=== PATIENT | female | born 1950 ===

== ENCOUNTER 2017-02-22 09:12 | Emergency (ER) | payer MEDICARE, MEDICAID ==
[2017-02-22 09:12] VITALS: BMI 26.6
[2017-02-22 09:35] VITALS: TEMP 99.8
[2017-02-22] MEDS ORDERED: Sodium Chloride 0.9% 1,000 ML IV STA (10:05)
[2017-02-22] MEDS ORDERED: Famotidine 20mg/50ml 20 MG/50 ML BAG IV STA (10:05)
--- NOTE | 2017-02-22 10:09 | ED PDOC ---
Arrival/HPI - General Chief Complaint: GI Problem Time Seen by Provider: 02/22/17 09:35 Historian: Patient - History of Present Illness Narrative History of Present Illness (Text): 02/22/17 10:12 A 66 year old female, whose past medical history includes hypertension, presents to the emergency department complaining of one day duration of abdominal cramping, generalized weakness and non-bilious non-bloody vomiting. Patient reports last BM today. Patient denies diarrhea, fever or any other complaints at this time. Time/Duration: 24 hours Symptom Onset: Sudden Symptom Course: Unchanged Activities at Onset: Rest Context: Home Past Medical History - Provider Review Nursing Documentation Reviewed: Yes - Infectious Disease Hx of Infectious Diseases: None - Tetanus Immunization Tetanus Immunization: Unknown - Reproductive Menopause: Yes - Cardiac Hx Cardiac Disorders: Yes Hx [place]: Yes Hx Hypertension: Yes - Pulmonary Hx Respiratory Disorders: No - Neurological Hx Neurological Disorder: Yes HX Cerebrovascular Accident: Yes - HEENT Hx HEENT Disorder: No - Renal Hx Renal Disorder: No - Endocrine/Metabolic Hx Endocrine Disorders: No - Hematological/Oncological Hx Blood Disorders: No - Integumentary Hx Dermatological Disorder: No - Musculoskeletal/Rheumatological Hx Musculoskeletal Disorders: Yes Hx Arthritis: Yes - Gastrointestinal Hx Gastrointestinal Disorders: Yes Hx Gastroesophageal Reflux: Yes - Genitourinary/Gynecological Hx Genitourinary Disorders: No - Psychiatric Hx Psychophysiologic Disorder: No Hx Anxiety: No Hx Bipolar Disorder: No Hx Depression: No Hx Emotional Abuse: No Hx Hallucinations: No Hx Panic Disorder: No Hx Post Traumatic Stress Disorder: No Hx Psychosis: No Hx Physical Abuse: No Hx Schizophrenia: No Hx Sexual Abuse: No Hx Substance Use: No - Past Surgical History Past Surgical History: Non-Contributing - Surgical History Hx Orthopedic Surgery: Yes (left elbow) - Anesthesia Hx Anesthesia: Yes Hx Anesthesia Reactions: No Hx Malignant Hyperthermia: No - Suicidal Assessment Feels Threatened In Home Enviroment: No Family/Social History - Physician Review Nursing Documentation Reviewed: Yes Family/Social History: No Known Family HX Smoking Status: Never Smoked Hx Alcohol Use: No Hx Substance Use: No Hx Substance Use Treatment: No Allergies/Home Meds Allergies/Adverse Reactions: Allergies No Known Allergies Allergy (Verified 02/22/17 09:20) Home Medications: Home Meds Medication Instructions Recorded Confirmed Aspirin/Dipyridamole [Aggrenox 25 1 cer PO DAILY 08/18/15 02/22/17 MG-200 MG] Omeprazole 20 mg PO DAILY 07/06/16 02/22/17 amLODIPine [Norvasc] 10 mg PO DAILY 07/06/16 02/22/17 Physical Exam - Physical Exam Narrative Physical Exam (Text): 02/22/17 10:09- Review of Systems Constitutional: Present: generalized weakness absent: Weight Change, Fevers Eyes: Normal ENT: Normal Respiratory: Normal absent: SOB, Cough, Sputum Cardiovascular: Normal absent: Chest pain, Palpitations, Syncope Gastrointestinal: Present: abdominal pain, non-bilious non-bloody vomiting absent: Diarrhea Genitourinary: Normal. absent: Dysuria, Frequency, Hematuria Musculoskeletal: Normal. absent: Arthralgias, Back Pain, Neck Pain Skin: Normal Neurological: Normal absent: Focal Weakness Endocrine: Normal Hemo/Lymphatic: Normal Psychiatric: Normal - Physical exam Patient appears age appropriate, speaking full sentences without difficulty - Systems Exam Head: Present: Atraumatic, Normocephalic Pupils: Present: PERRL Extraocular Muscles: Present: EOMI Conjunctiva: Present: Normal Mouth: Present: Moist Mucous Membranes Neck: Present: Normal Range of Motion. No: MIDLINE TENDERNESS, Paraspinal Tenderness Respiratory/Chest: Present: Clear to Auscultation, Good Air Exchange. No: Respiratory Distress, Accessory Muscle Use, Tachypnic Cardiovascular: Present: Regular Rate and Rhythm, Normal S1, S2, Peripheral Pulses Present. No: Murmurs Abdomen: Present: Normal Bowel Sounds, No: Tenderness, Peritoneal Signs, Rebound, Guarding, Distention Back: Present: Normal Inspection. No: Midline Tenderness, Paraspinal Tenderness Upper Extremity: Present: Normal Inspection. No: Cyanosis, Edema Lower Extremity: Present: Normal Inspection. No: Edema Neurological: Present: GCS=15, Speech Normal, cranial nerves II through XII fully intact with no cerebellar abnormality, neuro-sensory fully intact. No focal neurological deficits. Skin: Present: Warm, Dry, Normal Color. No: Rashes Lymphatic: Present: OX3, NI, NC Psychiatric: Present: Alert, Oriented x 3, Normal Insight, Normal Concentration Vital Signs Reviewed: Yes Vital Signs Temp Pulse Resp BP Pulse Ox 02/22/17 12:30 68 18 124/76 100 02/22/17 11:00 70 18 138/76 100 02/22/17 09:33 99.8 F H 68 18 142/81 99 02/22/17 09:23 97.8 F 80 18 151/91 H 99 Temperature: Afebrile Blood Pressure: Hypertensive Pulse: Regular Respiratory Rate: Normal Appearance: Positive for: Well-Appearing, Non-Toxic, Comfortable Pain Distress: None Mental Status: Positive for: Alert and Oriented X 3 Finger Stick Blood Glucose: 102 Medical Decision Making ED Course and Treatment: 02/22/17 10:06 Impression: A 66 year old female with abdominal cramping, generalized weakness and non- bilious non-bloody vomiting. No acute findings on physical exam. Differential Diagnosis included but are not limited to: dehydration, electrolyte abnormalities Plan: -- EKG -- labs -- IV fluids, Zofran, Pepcid -- Reassess and disposition Prior Visits: Notes and results from previous visits were reviewed. Patient last reported to the emergency department on 08/19/16 for evaluation of abdominal discomfort and associated nausea, non-bilious non-bloody vomiting and generalized weakness. Progress Notes: EKG shows NSR at [address]-segment elevations, normal intervals. Interpreted by me. 02/22/17 13:08 no acute lab findings On reevaluation, patient reports that she feels much better and would like to be discharged home. Patient's repeat abdominal exam is soft, nontender, non distended with positive bowel sounds in all 4 quadrants and no peritoneal signs. Patient is tolerating PO without any difficulty. Pt states she understands to return to the ER right away for new or worsening symptoms or for inability to f/u with PMD or specialist as instructed. Patient states that she fully agrees with and understands discharge instructions. States that she agrees with the plan and disposition. Verbalized and repeated discharge instructions and plan. I have given the patient opportunity to ask any additional questions. - Lab Interpretations Lab Results: 02/22/17 10:15 02/22/17 10:15 Lab Results 02/22/17 10:15: Sodium 139, Potassium 3.7, Chloride 104, Carbon Dioxide 24, Anion Gap 15, BUN 12, Creatinine 0.9, Est GFR ( Amer) > 60, Est GFR (Non- Af Amer) > 60, Random Glucose 99, Calcium 9.8, Total Bilirubin 1.2, AST 24, ALT 24, Alkaline Phosphatase 72, Lactate Dehydrogenase 490, Total Creatine Kinase 74 , Troponin I < 0.01, Total Protein 7.7, Albumin 4.5, Globulin 3.3, Albumin/ Globulin Ratio 1.4, Lipase 69 02/22/17 10:15: PT 11.8, INR 1.09 H, APTT 26.8 02/22/17 10:15: WBC 4.8, RBC 4.57, Hgb 13.4, Hct 39.3, MCV 86.0, MCH 29.3, MCHC 34.1, RDW 13.7, Plt Count 228, MPV 10.3, Gran % 72.5 H, Lymph % (Auto) 20.8 L, [place] % (Auto) 6.3 H, Eos % (Auto) 0.2 L, Baso % (Auto) 0.2, Gran # 3.45, Lymph # 1.0 L, [place] # 0.3, Eos # 0.0, Baso # 0.01 I have reviewed the lab results: Yes - EKG Interpretation Interpreted by ED Physician: Yes Type: 12 lead EKG - Medication Orders Current Medication Orders: Discontinued Medications Famotidine (Pepcid 20mg/50ml Premix) 20 mg in 50 mls @ 100 mls/hr IV STAT STA Stop: 02/22/17 10:34 Last Admin: 02/22/17 10:25 Dose: 100 mls/hr Sodium Chloride (Sodium Chloride 0.9%) 1,000 mls @ 1,000 mls/hr IV .Q1H STA Stop: 02/22/17 11:04 Last Admin: 02/22/17 10:25 Dose: 1,000 mls/hr Ondansetron HCl (Zofran Inj) 4 mg IVP STAT STA Stop: 02/22/17 10:06 Last Admin: 02/22/17 10:25 Dose: 4 mg - Scribe Statement The provider has reviewed the documentation as recorded by the Yordan Willingham Provider Jessicaibe Attestation: All medical record entries made by the Jessicaibbrittany were at my direction and personally dictated by me. I have reviewed the chart and agree that the record accurately reflects my personal performance of the history, physical exam, medical decision making, and the department course for this patient. I have also personally directed, reviewed, and agree with the discharge instructions and disposition. Disposition/Present on Arrival - Present on Arrival Any Indicators Present on Arrival: No History of DVT/PE: No History of Uncontrolled Diabetes: No Urinary Catheter: No History of Decub. Ulcer: No History Surgical Site Infection Following: None - Disposition Have Diagnosis and Disposition been Completed?: Yes Diagnosis: Abdominal pain, Nausea and vomiting Disposition: HOME/ ROUTINE Disposition Time: 13:13 Patient Plan: Discharge Condition: GOOD Discharge Instructions (ExitCare): Abdominal Pain (ED), Acute Nausea and Vomiting (ED) Additional Instructions: PLEASE RETURN TO THE EMERGENCY DEPARTMENT FOR NEW OR WORSENING SYMPTOMS. RETURN RIGHT AWAY IF YOU CANNOT FOLLOW UP WITH YOUR PRIMARY CARE DOCTOR, CLINIC, OR SPECIALIST IN 1-2 DAYS. Prescriptions: Famotidine [Pepcid] 20 mg PO BID #14 tab Ondansetron [Zofran Odt] 4 mg PO Q6 PRN #14 odt PRN Reason: Nausea/Vomiting
[2017-02-22 10:30] LABS: ADD MANUAL DIFF? NO
[2017-02-22 10:37] LABS: BASO # 0.01 K/mm3 (0.0-2.0); BASO % 0.2 % (0.0-3.0); EOS % 0.2 % (1.5-5.0); GRAN # 3.45 (1.4-6.5); GRAN % 72.5 % (50.0-68.0); HEMATOCRIT 39.3 % (36.0-48.0); LYMPH % 20.8 % (22.0-35.0); MEAN CORPUSCULAR HEMOGLOBIN 29.3 pg (25.0-35.0); MEAN CORPUSCULAR HGB CONC 34.1 g/dl (31.0-37.0); MEAN PLATELET VOLUME 10.3 fl (7.0-11.0); MONO # 0.3 (0.1-0.6); MONO % 6.3 % (1.0-6.0); PLATELET COUNT 228 10^3/uL (120.0-450.0); RED CELL DISTRIBUTION WIDTH 13.7 % (11.5-14.5); WHITE BLOOD COUNT 4.8 10^3/ul (4.5-11.0)
[2017-02-22 10:43] LABS: INR 1.09 (0.93-1.08); PARTIAL THROMBOPLASTIN TIME 26.8 Seconds (23.7-30.8)
[2017-02-22 10:45] LABS: ALB/GLOB RATIO 1.4 (1.1-1.8); ALKALINE PHOSPHATASE 72 U/L (38-133); ALT/SGPT 24 U/L (7-56); AST/SGOT 24 U/L (15-39); BILIRUBIN,TOTAL 1.2 mg/dL (0.2-1.3); BLOOD UREA NITROGEN 12 mg/dL (7-21); CALCIUM 9.8 mg/dL (8.4-10.5); CARBON DIOXIDE 24 mmol/L (21-33); CHLORIDE 104 mmol/L (98-107); GFR AFRICAN-AMERICAN > 60; GLUCOSE,RANDOM 99 mg/dL (70-110); LIPASE 69 U/L (23-300); POTASSIUM 3.7 mmol/L (3.6-5.0); SODIUM 139 mmol/L (132-148); TOTAL PROTEIN 7.7 g/dL (5.8-8.3)
[2017-02-22 10:57] LABS: TROPONIN I < 0.01 ng/mL
[2017-02-22 11:01] VITALS: O2SAT 100
[2017-02-22 13:33] VITALS: BP 128/80; PULSE 65; RESP 16
--- NOTE | 2017-02-22 22:30 | CARD ---
APPROVED REPORT EKG Measurement Heart [id number] <Conclusion> Normal sinus rhythm Minimal voltage criteria for LVH, may be normal variant Borderline ECG
== END 2017-02-22 13:34 | disposition home or self-care (01) ==
LOC: ED 09:12
DX: R10.9 Unspecified abdominal pain (principal); R11.2 Nausea with vomiting, unspecified; I10 Essential (primary) hypertension
CPT/HCPCS: 80053; 82550; 82948; 83615; 83690; 84484; 85025; 85610; 85730; 93005; 96365; 96375; 99285; J2405; J7040

== ENCOUNTER 2018-01-04 10:17 | Emergency (ER) | payer MEDICARE, MEDICAID ==
[2018-01-04 10:17] VITALS: BMI 26.6
[2018-01-04 10:42] VITALS: RESP 18; TEMP 99.3
[2018-01-04] MEDS ORDERED: Sodium Chloride 0.9% 1,000 ML IV ONE (10:50)
--- NOTE | 2018-01-04 11:24 | ED PDOC ---
Arrival/HPI - General Chief Complaint: Abdominal Pain Time Seen by Provider: 01/04/18 10:43 Historian: Patient - History of Present Illness Narrative History of Present Illness (Text): 01/04/18 11:21 67yo female with PMhx of hypertension, gastritis who present with 3days history of burning epigastric abdominal pain with nausea and vomiting x2. States is typical of her gastritis symptoms. She took her Omeprazole without relieve. She denies diarrhea, constipation, chest pain, SOB, melena, hematmesis, urinary symptoms. Past Medical History - Provider Review Nursing Documentation Reviewed: Yes - Infectious Disease Hx of Infectious Diseases: None - Tetanus Immunization Tetanus Immunization: Unknown - Reproductive Menopause: Yes - Cardiac Hx Cardiac Disorders: Yes Hx [place]: Yes Hx Hypertension: Yes - Pulmonary Hx Respiratory Disorders: No - Neurological Hx Neurological Disorder: Yes HX Cerebrovascular Accident: Yes - HEENT Hx HEENT Disorder: No - Renal Hx Renal Disorder: No - Endocrine/Metabolic Hx Endocrine Disorders: No - Hematological/Oncological Hx Blood Disorders: No - Integumentary Hx Dermatological Disorder: No - Musculoskeletal/Rheumatological Hx Musculoskeletal Disorders: Yes Hx Arthritis: Yes - Gastrointestinal Hx Gastrointestinal Disorders: Yes Hx Gastroesophageal Reflux: Yes - Genitourinary/Gynecological Hx Genitourinary Disorders: No - Psychiatric Hx Psychophysiologic Disorder: No Hx Anxiety: No Hx Bipolar Disorder: No Hx Depression: No Hx Emotional Abuse: No Hx Hallucinations: No Hx Panic Disorder: No Hx Post Traumatic Stress Disorder: No Hx Psychosis: No Hx Physical Abuse: No Hx Schizophrenia: No Hx Sexual Abuse: No Hx Substance Use: No - Past Surgical History Past Surgical History: Non-Contributing - Surgical History Hx Orthopedic Surgery: Yes (left elbow) - Anesthesia Hx Anesthesia: Yes Hx Anesthesia Reactions: No Hx Malignant Hyperthermia: No - Suicidal Assessment Feels Threatened In Home Enviroment: No Family/Social History - Physician Review Nursing Documentation Reviewed: Yes Family/Social History: Unknown Family HX Smoking Status: Never Smoked Hx Alcohol Use: No Hx Substance Use: No Hx Substance Use Treatment: No Allergies/Home Meds Allergies/Adverse Reactions: Allergies No Known Allergies Allergy (Verified 01/04/18 10:42) Home Medications: Home Meds Medication Instructions Recorded Confirmed Aspirin/Dipyridamole [Aggrenox 25 1 cer PO DAILY 08/18/15 01/04/18 MG-200 MG] Omeprazole 20 mg PO DAILY 07/06/16 01/04/18 amLODIPine [Norvasc] 10 mg PO DAILY 07/06/16 01/04/18 Review of Systems - Physician Review All systems were reviewed & negative as marked: Yes - Review of Systems Constitutional: Normal Eyes: Normal ENT: Normal Respiratory: Normal Cardiovascular: Normal Gastrointestinal: Abdominal Pain, Nausea, Vomiting. absent: Constipation, Diarrhea, Hematochezia, Hematemesis Genitourinary Female: Normal Musculoskeletal: Normal Skin: Normal Neurological: Normal Endocrine: Normal Hemo/Lymphatic: Normal Psychiatric: Normal Physical Exam Vital Signs Reviewed: Yes Vital Signs Temp Pulse Resp BP Pulse Ox 01/04/18 17:21 99.3 F 65 18 138/69 98 01/04/18 17:00 65 18 138/69 98 01/04/18 15:26 68 18 141/75 98 01/04/18 10:39 99.3 F 72 18 143/86 99 Temperature: Afebrile Blood Pressure: Normal Pulse: Regular Respiratory Rate: Normal Appearance: Positive for: Well-Appearing, Non-Toxic, Comfortable Pain Distress: None Mental Status: Positive for: Alert and Oriented X 3 - Systems Exam Head: Present: Atraumatic, Normocephalic Pupils: Present: PERRL Extroacular Muscles: Present: EOMI Conjunctiva: Present: Normal Mouth: Present: Moist Mucous Membranes Neck: Present: Normal Range of Motion Respiratory/Chest: Present: Clear to Auscultation, Good Air Exchange. No: Respiratory Distress, Accessory Muscle Use Cardiovascular: Present: Regular Rate and Rhythm, Normal S1, S2. No: Murmurs Abdomen: Present: Other (soft). No: Tenderness, Distention, Peritoneal Signs, Rebound, Guarding, McBurney's Point Tender, Rovsing's Sign Present Back: Present: Normal Inspection Upper Extremity: Present: Normal Inspection. No: Cyanosis, Edema Lower Extremity: Present: Normal Inspection. No: Edema Neurological: Present: GCS=15, CN II-XII Intact, Speech Normal Skin: Present: Warm, Dry, Normal Color. No: Rashes Psychiatric: Present: Alert, Oriented x 3, Normal Insight, Normal Concentration Medical Decision Making ED Course and Treatment: 01/04/18 19:44 Pt in ED for stated history. she states her pain improved in ED, but she still had pain. Lab was unremarkable and abdominal/pelvic Ct was ordered secondary to the pt's pain. On re evaluation she reports having BM in ED. States her pain resolved after the BM and she requested for food and was able to tolerate the food. Abdominal/Pelvic CT IMPRESSION: No CT evidence of acute pathology in the abdomen and pelvis. No evidence of cholecystitis or pancreatitis. The stomach is not distended therefore cannot be evaluated. Stable soft tissue mass in the uterus likely represent large fibroid. Result was DW the pt. She takes Omeprazole at home. She was given Zofran for nausea/vomiting. - Lab Interpretations Lab Results: 01/04/18 11:15 01/04/18 11:15 Lab Results 01/04/18 12:50: Urine Color Yellow, Urine Appearance Clear, Urine pH 6.0, Ur Specific [place] 1.010, Urine Protein Negative, Urine Glucose (UA) Negative, Urine Ketones Negative, Urine Blood Negative, Urine Nitrate Negative, Urine Bilirubin Negative, Urine Urobilinogen 0.2, Ur Leukocyte Esterase Trace H, Urine RBC Negative, Urine WBC 1 - 3, Ur Epithelial Cells 1 - 3, Urine Bacteria Few 01/04/18 11:15: Lactic Acid 0.8 01/04/18 11:15: Sodium 143, Potassium 3.4 L, Chloride 106, Carbon Dioxide 25, Anion Gap 15, BUN 10, Creatinine 0.8, Est GFR ( Amer) > 60, Est GFR (Non- Af Amer) > 60, Random Glucose 102, Calcium 9.1, Total Bilirubin 0.5, AST 21, ALT 17, Alkaline Phosphatase 61, Lactate Dehydrogenase 488, Total Creatine Kinase 96, Troponin I < 0.01, Total Protein 7.1, Albumin 4.2, Globulin 2.9, Albumin/Globulin Ratio 1.5, Amylase 66, Lipase 80 01/04/18 11:15: PT 12.9 H, INR 1.12 H, APTT 30.4 01/04/18 11:15: WBC 4.9, RBC 4.18, Hgb 12.1, Hct 36.0, MCV 86.1, MCH 28.9, MCHC 33.6, RDW 13.9, Plt Count 231, MPV 10.5, Gran % 68.1 H, Lymph % (Auto) 23.3, [place] % (Auto) 7.6 H, Eos % (Auto) 0.8 L, Baso % (Auto) 0.2, Gran # 3.33, Lymph # (Auto) 1.1 L, [place] # (Auto) 0.4, Eos # (Auto) 0.0, Baso # (Auto) 0.01 - RAD Interpretation Radiology Orders: 01/04/18 12:40 ABD & PELVIS IV CONTRAST ONLY [CT] Stat - Medication Orders Current Medication Orders: Discontinued Medications Famotidine (Pepcid) 20 mg IVP STAT STA Stop: 01/04/18 10:50 Last Admin: 01/04/18 11:12 Dose: 20 mg IVP Administration Document 01/04/18 11:12 EQ (Rec: 01/04/18 11:12 EQ [id number]) Charges for Administration # of IVP Administrations 1 Sodium Chloride (Sodium Chloride 0.9%) 1,000 mls @ 250 mls/hr IV .Q4H ONE Stop: 01/04/18 14:49 Last Admin: 01/04/18 11:12 Dose: 250 mls/hr eMAR Start Stop Document 01/04/18 11:12 EQ (Rec: 01/04/18 11:12 EQ [id number]) Intravenous Solution Start Date 01/04/18 Start Time 11:12 Ondansetron HCl (Zofran Inj) 4 mg IVP STAT STA Stop: 01/04/18 10:52 Last Admin: 01/04/18 11:12 Dose: 4 mg IVP Administration Document 01/04/18 11:12 EQ (Rec: 01/04/18 11:12 EQ [id number]) Charges for Administration # of IVP Administrations 1 Potassium Chloride (K-Dur 20 Meq Er Tab) 20 meq PO STAT STA Stop: 01/04/18 11:51 Last Admin: 01/04/18 14:29 Dose: 20 meq Disposition/Present on Arrival - Present on Arrival Any Indicators Present on Arrival: No History of DVT/PE: No History of Uncontrolled Diabetes: No Urinary Catheter: No History of Decub. Ulcer: No History Surgical Site Infection Following: None - Disposition Have Diagnosis and Disposition been Completed?: Yes Diagnosis: Abdominal pain, Nausea and vomiting Disposition: HOME/ ROUTINE Disposition Time: 16:50 Patient Plan: Discharge Condition: STABLE Discharge Instructions (ExitCare): Acute Abdomen (Belly Pain), Nausea and Vomiting, Adult (DC) Additional Instructions: Follow up with your doctor Return to ED for any new or worsening symptoms Prescriptions: Ondansetron ODT [Zofran ODT] 4 mg PO Q6 #6 odt Referrals: Fina Benavides MD [Primary Care Provider] - Follow up with primary Forms: [employer] ([place])
[2018-01-04 11:43] LABS: BASO # 0.01 K/mm3 (0.0-2.0); BASO % 0.2 % (0.0-3.0); EOS % 0.8 % (1.5-5.0); GRAN # 3.33 (1.4-6.5); GRAN % 68.1 % (50.0-68.0); HEMOGLOBIN 12.1 g/dL (12.0-16.0); LYMPH # 1.1 (1.2-3.4); LYMPH % 23.3 % (22.0-35.0); MEAN CELL VOLUME 86.1 fl (80.0-105.0); MEAN CORPUSCULAR HEMOGLOBIN 28.9 pg (25.0-35.0); MEAN CORPUSCULAR HGB CONC 33.6 g/dl (31.0-37.0); MEAN PLATELET VOLUME 10.5 fl (7.0-11.0); MONO # 0.4 (0.1-0.6); MONO % 7.6 % (1.0-6.0); RBC 4.18 10^6/uL (3.5-6.1); RED CELL DISTRIBUTION WIDTH 13.9 % (11.5-14.5); WHITE BLOOD COUNT 4.9 10^3/ul (4.5-11.0)
[2018-01-04 11:49] LABS: INR 1.12 (0.93-1.08); PARTIAL THROMBOPLASTIN TIME 30.4 Seconds (25.1-36.5); PROTHROMBIN TIME 12.9 SECONDS (9.4-12.5)
[2018-01-04 11:50] LABS: ALB/GLOB RATIO 1.5 (1.1-1.8); ALBUMIN 4.2 g/dL (3.0-4.8); ALT/SGPT 17 U/L (7-56); AMYLASE 66 U/L (35-125); AST/SGOT 21 U/L (14-36); BLOOD UREA NITROGEN 10 mg/dL (7-21); CALCIUM 9.1 mg/dL (8.4-10.5); GFR AFRICAN-AMERICAN > 60; GFR NON-AFRICAN AMERICAN > 60; LIPASE 80 U/L (23-300)
[2018-01-04] MEDS ORDERED: Potassium Chloride 20 mEq ER Tab PO STA (11:50)
[2018-01-04 12:01] LABS: TROPONIN I < 0.01 ng/mL
[2018-01-04 13:10] LABS: URINE BILIRUBIN NEGATIVE (NEGATIVE); URINE BLOOD NEGATIVE (NEGATIVE); URINE GLUCOSE (UA) NEGATIVE (NEGATIVE); URINE LEUKOCYTE ESTERASE TRACE Leu/uL (NEGATIVE); URINE PROTEIN NEGATIVE mg/dL (<30 mg/dL); URINE UROBILINOGEN 0.2 E.U./dL (<1 E.U./dL)
[2018-01-04 13:13] LABS: URINE APPEARANCE CLEAR (CLEAR); URINE COLOR YELLOW (YELLOW)
[2018-01-04 13:23] LABS: URINE RBC NEGATIVE /hpf (0-2)
[2018-01-04 13:24] LABS: URINE BACTERIA FEW (NEG)
[2018-01-04] MEDS ORDERED: Iohexol 350 MG/100 ML VIAL ONE (13:27)
[2018-01-04 15:26] VITALS: O2SAT 98
--- NOTE | 2018-01-04 16:41 | CT ---
PROCEDURE: CT Abdomen and Pelvis with contrast HISTORY: epigastric pain COMPARISON: Comparison is made to previous study dated 12/14/2015 TECHNIQUE: Contrast dose: 100 mL of Omnipaque 350 Radiation dose: Total exam DLP = 788.88 mGy-cm. This CT exam was performed using one or more of the following dose reduction techniques: Automated exposure control, adjustment of the mA and/or kV according to patient size, and/or use of iterative reconstruction technique. FINDINGS: LOWER THORAX: No evidence of acute pathology at the lung bases. There is calcified nodule again noted at the left lung base likely represent calcified granuloma no evidence of pleural effusion. LIVER: Unremarkable. No gross lesion or ductal dilatation. GALLBLADDER AND BILE DUCTS: Unremarkable. PANCREAS: No CT evidence of acute pancreatitis. . No gross lesion or ductal dilatation. SPLEEN: Unremarkable. ADRENALS: Unremarkable. No mass. KIDNEYS AND URETERS: Unremarkable. No hydronephrosis. No solid mass. VASCULATURE: Unremarkable. No aortic aneurysm. BOWEL: Unremarkable. No obstruction. No gross mural thickening. APPENDIX: No evidence of appendicitis. PERITONEUM: Unremarkable. No free fluid. No free air. LYMPH NODES: Unremarkable. No enlarged lymph nodes. BLADDER: Unremarkable. REPRODUCTIVE: There is a enhancing soft tissue mass in the uterus likely represent fibroid measures 6.6 x 6 centimeter which has not significantly changed since the previous exam. The adnexa are grossly unremarkable. BONES: No acute fracture. OTHER FINDINGS: None. IMPRESSION: No CT evidence of acute pathology in the abdomen and pelvis. No evidence of cholecystitis or pancreatitis. The stomach is not distended therefore cannot be evaluated. Stable soft tissue mass in the uterus likely represent large fibroid.
[2018-01-04 17:09] VITALS: BP 138/69; PULSE 65
--- NOTE | 2018-01-04 18:24 | CARD ---
APPROVED REPORT EKG Measurement Heart [id number] <Conclusion> Sinus rhythm with premature atrial complexes Otherwise normal ECG
== END 2018-01-04 17:21 | disposition home or self-care (01) ==
LOC: ED 10:17
DX: R10.9 Unspecified abdominal pain (principal); R11.2 Nausea with vomiting, unspecified; I25.2 Old myocardial infarction; I10 Essential (primary) hypertension; K21.9 Gastro-esophageal reflux disease without esophagitis; Z86.73 Personal history of transient ischemic attack (TIA), and cerebral infarction without residual deficits
CPT/HCPCS: 74177; 80053; 81001; 82150; 82550; 83605; 83615; 83690; 84484; 85025; 85610; 85730; 87086; 93005; 96374; 96375; 99283; J2405; J7040; Q9967

== ENCOUNTER 2018-10-04 01:02 | Emergency (ER) | payer MEDICARE, MEDICAID ==
[2018-10-04] MEDS ORDERED: Lidocaine 5% Patch TD ONE (03:00)
[2018-10-04 06:27] VITALS: BP 140/66; PULSE 64; RESP 20; TEMP 98; O2SAT 98
== END 2018-10-04 03:59 | disposition home or self-care (01) ==
LOC: ED 01:02
DX: M54.9 Dorsalgia, unspecified (principal); I10 Essential (primary) hypertension